=== PATIENT | female | born 1975 | race Caucasian/White ===

== ENCOUNTER → 2021-06-26 | Outpatient (CLI) | payer BC ==
[2021-06-27 11:14] LABS: RHEUMATOID ARTHRITIS FACTOR <10.0 IU/mL (0.0-13.9)
== END ==
LOC: LAB 12:24
PROVIDERS: Nurse Practitioner Family
DX: M79.671 Pain in right foot (principal); M79.672 Pain in left foot; M79.10 Myalgia, unspecified site; M25.50 Pain in unspecified joint
CPT/HCPCS: 36415; 73630; 82550; 83520; 85652; 86140; 86200; 86431

== ENCOUNTER 2021-07-18 15:32 | Emergency (ER) | payer BC ==
[2021-07-18 16:22] LABS: HEMOGLOBIN 13.2 gm/dl (12.3-15.3); RED BLOOD COUNT 4.31 M/UL (4.00-5.10); WHITE BLOOD COUNT 7.8 K/UL (4.5-11.0)
[2021-07-18 16:55] LABS: BUN/CREATININE RATIO 17 (0-10)
[2021-07-18] MEDS ORDERED: TOPROL XL25 MG PO (20:25)
== END 2021-07-18 21:25 | disposition home or self-care (01) ==
LOC: ER1 15:32
PROVIDERS: Preventive Medicine Occupational Medicine
DX: R00.2 Palpitations (principal); R07.89 Other chest pain
CPT/HCPCS: 71045; 80053; 81001; 82550; 82553; 83874; 83880; 84484; 85025; 85652; 86140; 87086; 93005; 99285

== ENCOUNTER 2021-07-22 09:45 | Emergency (ER) | payer BC ==
[~2021-07-22 09:45] MED LIST: TOPROL XL25 MG PO
[2021-07-22 10:50] LABS: HEMOGLOBIN 14.3 gm/dl (12.3-15.3); RED BLOOD COUNT 4.65 M/UL (4.00-5.10); WHITE BLOOD COUNT 9.6 K/UL (4.5-11.0)
[2021-07-22 11:17] LABS: BUN/CREATININE RATIO 17 (0-10)
== END 2021-07-22 11:30 | disposition home or self-care (01) ==
LOC: ER1 09:45
PROVIDERS: Family Medicine
DX: R07.89 Other chest pain (principal); R00.2 Palpitations; R06.00 Dyspnea, unspecified
CPT/HCPCS: 71045; 80048; 82550; 82553; 83874; 84439; 84443; 84484; 85025; 93005; 99285

== ENCOUNTER → 2021-11-07 | Outpatient (CLI) | payer BC | LOC: HEART 5 13:03 | DX: R00.2 Palpitations (principal) ==

== ENCOUNTER → 2022-01-04 | Outpatient (CLI) | payer BC | LOC: CATH 10:00 | DX: R55 Syncope and collapse (principal); R00.0 Tachycardia, unspecified; R00.2 Palpitations ==

== ENCOUNTER → 2022-05-29 | Outpatient (CLI) | payer BC | LOC: KOH-I 11:22 | DX: R79.89 Other specified abnormal findings of blood chemistry (principal) | CPT/HCPCS: 71046 ==